=== PATIENT | female | born 1935 | race Caucasian/White ===

== ENCOUNTER 2022-07-25 07:56 | Observation (INO) ==
[2022-07-25] MEDS ORDERED: SODIUM CHLORIDE 0.9% 1000ML 1,000 ML IV ONE (08:06)
--- NOTE | 2022-07-25 08:10 | Emergency Department Note ---
Impression & Plan Syncope, COVID-19 ED Provider Note NAME: ANGELA MILLAN AGE: 87 SEX: F : 1935 ARRIVES VIA: Ambulance INFORMANT: Patient ED PROVIDER(S): Pierce Thorpe DO CHIEF COMPLAINT: syncope HPI: Patient is an 87-year-old female who presents to the ER who woke up this morning and went into the bathroom to get ready for the day. She was not going to use the restroom. She denies any headache or change in vision. She felt a little lightheaded and passed out. She woke up on the floor called EMS. When she tried to get up she almost passed out again. Systolic pressures went down to the 60s and she bradycardia to the 30s per EMS. She denies any chest pain, shortness of breath, nausea, vomiting, or diarrhea. No dysuria, urgency, or frequency. No other exacerbating or remitting factors. PAST MEDICAL HISTORY:See Below PAST SURGICAL HISTORY:See Below FAMILY HISTORY:See Below SOCIAL HISTORY:See Below HOME MEDICATIONS:See Below ALLERGIES:See Below VITALS:See Below PHYSICAL EXAMINATION: GENERAL: Sitting up in bed, alert, well appearing, well nourished, no distress, non-toxic EYE EXAM: normal conjunctiva. PERRL and EOM's intact. OROPHARYNX: no exudate, no erythema, lips, buccal mucosa, and tongue normal and mucous membranes are moist NECK: supple, no nuchal rigidity, no adenopathy, non-tender LUNGS: Clear to auscultation. Normal chest wall mechanics HEART: no murmurs, S1 normal and S2 normal ABDOMEN: abdomen soft, non-tender, normo-active bowel sounds, no masses, no rebound or guarding. BACK: Back is symmetrical on inspection and there is no deformity, no midline tenderness, no CVA tenderness. SKIN: no rashes and no bruising UPPER EXTREMITIES: upper extremities are grossly normal. LOWER EXTREMITIES: No pitting edema. NEURO EXAM: Normal sensorium, cranial nerves II-XII intact, normal speech, no weakness of arms, no weakness of legs. No drift. Finger to nose intact. Gross sensation intact. MEDICAL DECISION MAKING: Patient is an 87-year-old female who presents the ER for syncope. She was brought in by EMS. Report was obtained from EMS by myself at bedside. IV was established blood work was obtained. Labs show no significant leukocytosis or anemia. BMP with LFTs bilirubin and lipase was unremarkable. TSH was normal. COVID was positive. External records were reviewed. CT head was negative. Chest x-ray without any focal infiltrate. Patient was given IV fluids while in the ER. Patient was updated bedside. Discussed with hospitalist for further evaluation management and treatment. Triage Nursing notes reviewed. Limited review of prior medical records performed Vital Signs: reviewed and remarkable for no significant abnormalities Differential diagnosis: Differential diagnosis includes etiologies such as vasovagal event, infection, hypoglycemia, electrolyte abnormalities, cardiac sources, intracerebral event, toxicologic, neurologic, as well as others were entertained. ER treatment provided: See below Diagnostics interpreted by me include EKG and cardiac monitoring as listed below: -Cardiac Monitoring: An order was placed for continuous cardiac monitoring. The monitor shows a rate of 80 with sinus rhythm. -ECG: Sinus rhythm rate 69 Normal axis T wave inversions in V2 through V6 Slightly progressed from previous. -Laboratory studies:Interpreted by me as stated above in MDM and shown below. Imaging studies: Xrays: As interpreted by me: Portable AP upright 1 view of the chest CTs show: none Consultation(s): As described in MDM Procedures:none Critical Care: None Past Med/Surg History Medical History (Updated 07/25/22 @ 13:30 by Pierce Thorpe DO) HLD (hyperlipidemia) Hypothyroid MGUS (monoclonal gammopathy of unknown significance) Osteoarthritis Surgical History History of breast biopsy x2--benign History of colonoscopy History of dilatation and curettage History of tooth extraction Family History (Updated 07/25/22 @ 10:02 by Susana Brambila PA-C) Aunt Breast cancer Mother Hypertension Heart disease Father Heart disease Diabetes Son Diabetes Other No family history of adverse response to anesthesia Social History Smoking Status: Never smoker Second Hand Exposure: No; Hx Alcohol Use: No Hx Substance Use: No Preferred Language: Burmese Communication Ability: Effective 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 Beliefs That Will Affect Care: None Current Living Situation: Alone Current Living Situation Comment: Lives with daughter Feels Safe at Home: Yes Safety Concerns: Feels Safe At This Time Assistive Devices: Glasses Allergies Allergies Allergy/AdvReac Type Severity Reaction Status Date / Time No Known Allergies Allergy Verified 07/25/22 08:40 Home Meds Home Medications Medication Instructions Recorded Confirmed escitalopram oxalate 5 mg tablet 5 mg PO HS 10/01/20 07/25/22 (Lexapro) levothyroxine 75 mcg tablet 75 mcg PO QAM 10/01/20 07/25/22 simvastatin 20 mg tablet 20 mg PO QPM 10/01/20 07/25/22 cholecalciferol (vitamin D3) 10 10 mcg PO QDL 04/30/21 07/25/22 mcg (400 unit) tablet (Vitamin D3) meclizine 25 mg tablet 25 mg PO BID PRN Dizziness 07/25/22 07/25/22 Results & Data (ED) Vital Signs Vital Signs - 24 hr 07/25/22 08:09 07/25/22 08:12 07/25/22 08:12 Temperature 37.1 C Temperature Source Oral Pulse Rate 70 Respiratory Rate 14 Blood Pressure 137/73 Blood Pressure Mean 94 Blood Pressure Position Sitting Pulse Oximetry 96 Oxygen Delivery Method Room Air Room Air Room Air Sepsis Recent Fever Within 48 Hours No Sepsis New/Unexplained Change in Mental Status No Sepsis Action Taken by Nursing No Action Required 07/25/22 08:12 07/25/22 08:11 Temperature Temperature Source Oral Pulse Rate 68 Respiratory Rate Blood Pressure Blood Pressure Mean Blood Pressure Position Pulse Oximetry Oxygen Delivery Method Sepsis Recent Fever Within 48 Hours Sepsis New/Unexplained Change in Mental Status Sepsis Action Taken by Nursing Laboratory Data 07/25/22 08:04 07/25/22 08:04 Lab Results 07/25/22 07/25/22 07/25/22 Range/Units 08:04 08:04 08:04 WBC 5.87 (4.8-10.8) K/ul RBC 4.39 (4.20-5.40) M/uL Hgb 13.0 (12.0-16.0) g/dl Hct 39.6 (37.0-47.0) % MCV 90.2 (80.0-100.0) fL MCH 29.6 (25.0-34.0) pg MCHC 32.8 (32.0-36.0) g/dL RDW Std Deviation 43.2 (36.4-46.3) fL RDW Coeff of Eleni 13.0 (11.5-14.5) % Plt Count 181 (130-400) K/uL MPV 9.3 L (9.4-12.4) fL Immature Gran % (Auto) 0.9 % Neut % (Auto) 74.9 % Lymph % (Auto) 14.1 % [place] % (Auto) 8.7 % Eos % (Auto) 0.9 % Baso % (Auto) 0.5 % Neut # (Auto) 4.40 (1.40-6.50) K/uL Lymph # (Auto) 0.83 L (1.2-3.4) K/uL [place] # (Auto) 0.51 (0.11-0.59) K/uL Eos # (Auto) 0.05 (0-0.50) K/uL Baso # (Auto) 0.03 (0-0.2) K/uL Immature Gran # (Auto) 0.05 (0.01-0.20) K/uL Sodium 137 (136-145) mmol/L Potassium 4.4 (3.5-5.1) mmol/L Chloride 107 (98-107) mmol/L Carbon Dioxide 26 (21-32) mmol/L Anion Gap 4 (3-11) BUN 19 (6-23) mg/dl Creatinine 1.02 (0.6-1.2) mg/dl Est Cr Clr Drug Dosing 38.1 ml/min Est GFR ( Amer) 57.7 ml/min Est GFR (Non-Af Amer) 49.8 ml/min BUN/Creatinine Ratio 18.6 (10-20) Glucose 115 H (70-99(Fasting)) mg/dl Calcium 8.9 (8.5-10.1) mg/dl Total Bilirubin 0.6 (0.2-1.0) mg/dl AST 21 (13-39) U/L ALT 19 (7-52) U/L Alkaline Phosphatase 114 H (34-104) U/L Troponin I High Sens 4.0 (0-14) pg/ml Total Protein 6.6 (6.0-8.3) gm/dl Albumin 4.0 (3.4-5.0) gm/dl Globulin 2.6 (2.5-4.0) gm/dl Albumin/Globulin Ratio 1.5 (0.9-2) Lipase 38 (11-82) U/L TSH 1.034 (0.300-4.500) uIu/ml SARS-CoV-2 (PCR) (Negative) Influenza Type A (PCR) (Neg) Influenza Type B (PCR) (Neg) RSV (RT-PCR) (Neg) 07/25/22 Range/Units 08:37 WBC (4.8-10.8) K/ul RBC (4.20-5.40) M/uL Hgb (12.0-16.0) g/dl Hct (37.0-47.0) % MCV (80.0-100.0) fL MCH (25.0-34.0) pg MCHC (32.0-36.0) g/dL RDW Std Deviation (36.4-46.3) fL RDW Coeff of Eleni (11.5-14.5) % Plt Count (130-400) K/uL MPV (9.4-12.4) fL Immature Gran % (Auto) % Neut % (Auto) % Lymph % (Auto) % [place] % (Auto) % Eos % (Auto) % Baso % (Auto) % Neut # (Auto) (1.40-6.50) K/uL Lymph # (Auto) (1.2-3.4) K/uL [place] # (Auto) (0.11-0.59) K/uL Eos # (Auto) (0-0.50) K/uL Baso # (Auto) (0-0.2) K/uL Immature Gran # (Auto) (0.01-0.20) K/uL Sodium (136-145) mmol/L Potassium (3.5-5.1) mmol/L Chloride (98-107) mmol/L Carbon Dioxide (21-32) mmol/L Anion Gap (3-11) BUN (6-23) mg/dl Creatinine (0.6-1.2) mg/dl Est Cr Clr Drug Dosing ml/min Est GFR ( Amer) ml/min Est GFR (Non-Af Amer) ml/min BUN/Creatinine Ratio (10-20) Glucose (70-99(Fasting)) mg/dl Calcium (8.5-10.1) mg/dl Total Bilirubin (0.2-1.0) mg/dl AST (13-39) U/L ALT (7-52) U/L Alkaline Phosphatase (34-104) U/L Troponin I High Sens (0-14) pg/ml Total Protein (6.0-8.3) gm/dl Albumin (3.4-5.0) gm/dl Globulin (2.5-4.0) gm/dl Albumin/Globulin Ratio (0.9-2) Lipase (11-82) U/L TSH (0.300-4.500) uIu/ml SARS-CoV-2 (PCR) POSITIVE A* (Negative) Influenza Type A (PCR) Negative (Neg) Influenza Type B (PCR) Negative (Neg) RSV (RT-PCR) Negative (Neg) Administered Medications Enoxaparin Sodium (Enoxaparin Inj 40 Mg/0.4 Ml Syr) 40 mg SQ Q12H DEANN Stop: 08/24/22 12:29 Last Admin: 07/25/22 13:07 Dose: 40 mg Documented By: NMS Discontinued Medications Sodium Chloride (Nss 1000ml) 1,000 mls @ 999 mls/hr IV .Q1H1M ONE Stop: 07/25/22 09:06 Last Infusion: 07/25/22 11:02 Dose: 0 mls/hr Documented By: Admin: 07/25/22 08:39 Dose: 999 mls/hr Documented By: JPG Imaging Data Radiologist's Impression: Chest X-Ray 07/25/22 08:06 XR chest 1V portable CLINICAL HISTORY: Chest pain, nonspecific TECHNIQUE: Single frontal radiograph of the chest was obtained. Comparison: None available at the time of this dictation. FINDINGS: No lines and tubes are seen. The cardiomediastinal silhouette is normal. The lungs are clear. No evidence of pleural effusion or pneumothorax. IMPRESSION: No acute chest disease. ACT 112: Negative or not required by law. Electronically signed by: Ashish Brown M.D. 07/25/2022 8:[address] 07/25/22 08:[address] DOSE: 537.48 mGy.cm HISTORY: Syncope. fall TECHNIQUE: Multiaxial CT images of the head were performed without the use of intravenous contrast. Automated exposure control was utilized for this study. A dose lowering technique was utilized adhering to the principles of ALARA. Comparison: None. Findings: Mild mucosal thickening within the ethmoid air cells. The mastoid air cells are clear. Partially calcified sebaceous cyst seen within the scalp. The calvarium and skull base are intact. There is no mass, hematoma, midline shift, acute infarct. White matter hypodensity is nonspecific but suggestive of microvascular ischemic change. The ventricles and sulci demonstrate mild age-related involutional changes. Impression: No acute intracranial abnormality. Atrophy and microvascular ischemic changes. ACT 112: Negative or not required by law. Electronically signed by: Jg Narayan M.D. 07/25/2022 9:21 AM Discharge Plan Visit Data Chief Complaint: Syncope Stated Complaint: SYNCOPE ED Provider: Pierce Thorpe Discharge Problem: Syncope, COVID-19 Patient Disposition: Admitted As Inpatient Discharge Instructions Interventions: ED Discharge Assessment Last Done: 07/25/22 11:32
--- NOTE | 2022-07-25 08:27 | XRay Report ---
XR chest 1V portable CLINICAL HISTORY: Chest pain, nonspecific TECHNIQUE: Single frontal radiograph of the chest was obtained. Comparison: None available at the time of this dictation. FINDINGS: No lines and tubes are seen. The cardiomediastinal silhouette is normal. The lungs are clear. No evid ence of pleural effusion or pneumothorax. IMPRESSION: No acute chest disease. ACT 112: Negative or not required by law. Electronically signed by: Ashish Brown M.D. 07/25/2022 8:26 AM
[2022-07-25 08:37] LABS: Basophils # (auto) 0.03 K/uL (0-0.2); Basophils % (auto) 0.5 %; Eosinophils # (auto) 0.05 K/uL (0-0.50); Eosinophils % (auto) 0.9 %; Hematocrit (blood only) 39.6 % (37.0-47.0); Immature Granulocytes # (auto) 0.05 K/uL (0.01-0.20); Immature Granulocytes % (auto) 0.9 %; Lymphocytes # (auto) 0.83 K/uL (1.2-3.4); Lymphocytes % (auto) 14.1 %; Mean Corpuscular Hemoglobin 29.6 pg (25.0-34.0); Mean Corpuscular Hgb Conc 32.8 g/dL (32.0-36.0); Mean Corpuscular Volume 90.2 fL (80.0-100.0); Mean Platelet Volume 9.3 fL (9.4-12.4); Monocytes # (auto) 0.51 K/uL (0.11-0.59); Monocytes % (auto) 8.7 %; Neutrophils % (auto) 74.9 %; Platelet Count 181 K/uL (130-400); RDW Standard Deviation 43.2 fL (36.4-46.3); Red Blood Count 4.39 M/uL (4.20-5.40); White Blood Count 5.87 K/ul (4.8-10.8)
[2022-07-25 08:52] LABS: Albumin Globulin Ratio 1.5 (0.9-2); BUN Creatinine Ratio 18.6 (10-20); Bilirubin,Total 0.6 mg/dl (0.2-1.0); Calcium 8.9 mg/dl (8.5-10.1); Creatinine Clr Calc Pharmacy 38.1 ml/min; Est GFR (African American) 57.7 ml/min; Est GFR (Non-African American) 49.8 ml/min; Globulin 2.6 gm/dl (2.5-4.0); Potassium 4.4 mmol/L (3.5-5.1); Total Protein 6.6 gm/dl (6.0-8.3)
--- NOTE | 2022-07-25 09:24 | CT Scan Report ---
HEAD CT NONCONTRAST CT DOSE: 537.48 mGy.cm HISTORY: Syncope. fall TECHNIQUE: Multiaxial CT images of the head were performed without the use of intravenous contrast. A utomated exposure control was utilized for this study. A dose lowering technique was utilized adheri ng to the principles of ALARA. Comparison: None. Findings: Mild mucosal thickening within the ethmoid air cells. The mastoid air cells are clear. Part ially calcified sebaceous cyst seen within the scalp. The calvarium and skull base are intact. There is no mass, hematoma, midline shift, acute infarct. White matter hypodensity is nonspecific but sugge stive of microvascular ischemic change. The ventricles and sulci demonstrate mild age-related involut ional changes. Impression: No acute intracranial abnormality. Atrophy and microvascular ischemic changes. ACT 112: Negative or not required by law. Electronically signed by: Jg Narayan M.D. 07/25/2022 9:21 AM
--- NOTE | 2022-07-25 09:59 | History & Physical Report ---
Date of Service July 25, 2022 Assessment & Plan (1) Syncope: Plan: - Admit to tele - Sounds like a vasovagal episode but will rule out other etiology - Trend cardiac biomarkers, first set ordered now, trend x2 sets - Check orthostatics - EKG reviewed as above - showing slight T wave inversions but this appears to be chronic - Check 2 D echo - PT/OT consulted (2) COVID-19: Plan: -Patient complains of a head cold times few days, serology is positive for COVID-19 on admission -Placed on airborne isolation -No hypoxia, on room air at 96% sats -No wbc, no respiratory sx other than dry cough so does not meet needs for dexamethasone currently (3) Osteoarthritis: Plan: - cont vit D supplementation (4) HLD (hyperlipidemia): Plan: - Cont statin therapy (5) Hypothyroid: Plan: - Cont levothyroxine - Will check TSH with reflex T4 (6) MGUS (monoclonal gammopathy of unknown significance): Plan: - Hx of such since 2005, will place on lovenox 40 mg subq Q12H for DVT ppx with covid - CBC with diff appears WNL - Follows with Dr. Rayshawn Choi as outpatient- previously obtained care at [facility] DVT ppx: - teds, scds, lovenox subq 40 mg Q12h Code: Full Dispo: from home, lives independently History of Present Illness Chief Complaint: Syncope and Fall Primary Care Provider: Jordy Sim MD This is an 81-year-old female with PMHx of MGUS, mild leukopenia, hypothyroidism, chronic depression, osteoarthritis, HLD who presents to the hospital after a bout of dizziness and sustaining of a fall which occurred this morning. She was attempting to get up and get ready for the day; she made her bed without difficulty, but felt somewhat warm/hot. Denies fever overnight. She was walking from the bedroom to the bathroom and attempted to walk back but doesn't remember what happened afterwards but was leaning against the wall when she came to. She had been visiting her daughter to plan to go for a routine mammography, and so daughter was at home and heard her, then called EMS. She denies any chest pain or shortness of breath. Pt did not vomit nor was nauseous. She did not loose control of her bowels during the event. Pt admits to having a history of vertigo, but feels the room spinning, but does not think this felt the same. Pt reports having a head cold for the past few days. She had very runny nose recently, sinus congestion, and has a dry cough. Allergies Allergy/AdvReac Type Severity Reaction Status Date / Time No Known Allergies Allergy Verified 07/25/22 08:40 Home Medications Medication Instructions Recorded Confirmed Type escitalopram oxalate 5 mg tablet 5 mg PO HS 10/01/20 07/25/22 History (Lexapro) levothyroxine 75 mcg tablet 75 mcg PO QAM 10/01/20 07/25/22 History simvastatin 20 mg tablet 20 mg PO QPM 10/01/20 07/25/22 History cholecalciferol (vitamin D3) 10 10 mcg PO QDL 04/30/21 07/25/22 History mcg (400 unit) tablet (Vitamin D3) meclizine 25 mg tablet 25 mg PO BID PRN Dizziness 07/25/22 07/25/22 History Past Med/Surg History Medical History (Updated 07/25/22 @ 10:55 by Susana Brambila PA-C) HLD (hyperlipidemia) Hypothyroid MGUS (monoclonal gammopathy of unknown significance) Osteoarthritis Surgical History History of breast biopsy x2--benign History of colonoscopy History of dilatation and curettage History of tooth extraction Family History (Updated 07/25/22 @ 10:02 by Susana Brambila PA-C) Aunt Breast cancer Mother Hypertension Heart disease Father Heart disease Diabetes Son Diabetes Other No family history of adverse response to anesthesia Social History Smoking Status: Never smoker Second Hand Exposure: No; Hx Alcohol Use: No Hx Substance Use: No Preferred Language: Welsh Communication Ability: Effective Russian History Professor Required: No Beliefs That Will Affect Care: None Current Living Situation: Alone Current Living Situation Comment: Lives with daughter Feels Safe at Home: Yes Safety Concerns: Feels Safe At This Time Assistive Devices: Glasses Review of Systems Review of Systems: Constitutional: No fever, sweats or chills + admits to recent head cold as above Eyes: No diplopia, no worsening or blurred vision ENT: normal hearing, no trouble swallowing Respiratory:+ dry cough, no sputum, dyspnea at rest or on exertion Cardiovascular: No chest pain, tightness or palpitations Abdomen: No pain, nausea, vomiting, diarrhea or constipation Musculoskeletal: No joint pain, calf pain, swelling Neurologic:As per HPI, No weakness, numbness/tingling, or balance problems Psychiatric: No anxiety or depression, on antidepressant medication Skin: No rash or itch Physical Exam Physical Exam: Please refer to attending physical exam. Results & Data Results & Data ([facility]) Vital Signs (Past 12 Hours) Vital Signs Temp Pulse Resp BP Pulse Ox O2 Del Method 07/25/22 08:11 68 07/25/22 08:12 Room Air 07/25/22 08:12 Room Air 07/25/22 08:09 37.1 C 70 14 137/73 96 Room Air Laboratory Results 07/25/22 07/25/22 08:04 08:04 WBC 5.87 RBC 4.39 Hgb 13.0 Hct 39.6 MCV 90.2 MCH 29.6 MCHC 32.8 RDW Std Deviation 43.2 RDW Coeff of Eleni 13.0 Plt Count 181 MPV 9.3 L Immature Gran % (Auto) 0.9 Neut % (Auto) 74.9 Lymph % (Auto) 14.1 [place] % (Auto) 8.7 Eos % (Auto) 0.9 Baso % (Auto) 0.5 Neut # (Auto) 4.40 Lymph # (Auto) 0.83 L [place] # (Auto) 0.51 Eos # (Auto) 0.05 Baso # (Auto) 0.03 Immature Gran # (Auto) 0.05 Sodium 137 Potassium 4.4 Chloride 107 Carbon Dioxide 26 Anion Gap 4 BUN 19 Creatinine 1.02 Est Cr Clr Drug Dosing 38.1 Est GFR ( Amer) 57.7 Est GFR (Non-Af Amer) 49.8 BUN/Creatinine Ratio 18.6 Glucose 115 H Calcium 8.9 Total Bilirubin 0.6 AST 21 ALT 19 Alkaline Phosphatase 114 H Troponin I High Sens 4.0 Total Protein 6.6 Albumin 4.0 Globulin 2.6 Albumin/Globulin Ratio 1.5 Lipase 38 Diagnostic Findings Chest X-Ray 07/25/22 08:06 XR chest 1V portable CLINICAL HISTORY: Chest pain, nonspecific TECHNIQUE: Single frontal radiograph of the chest was obtained. Comparison: None available at the time of this dictation. FINDINGS: No lines and tubes are seen. The cardiomediastinal silhouette is normal. The lungs are clear. No evidence of pleural effusion or pneumothorax. IMPRESSION: No acute chest disease. ACT 112: Negative or not required by law. Electronically signed by: Ashish Brown M.D. 07/25/2022 8:[address] 07/25/22 08:[address] DOSE: 537.48 mGy.cm HISTORY: Syncope. fall TECHNIQUE: Multiaxial CT images of the head were performed without the use of intravenous contrast. Automated exposure control was utilized for this study. A dose lowering technique was utilized adhering to the principles of ALARA. Comparison: None. Findings: Mild mucosal thickening within the ethmoid air cells. The mastoid air cells are clear. Partially calcified sebaceous cyst seen within the scalp. The calvarium and skull base are intact. There is no mass, hematoma, midline shift, acute infarct. White matter hypodensity is nonspecific but suggestive of microvascular ischemic change. The ventricles and sulci demonstrate mild age- related involutional changes. Impression: No acute intracranial abnormality. Atrophy and microvascular ischemic changes. ACT 112: Negative or not required by law. Electronically signed by: Jg Narayan M.D. 07/25/2022 9:21 AM Code Status & VTE Plan Code Status Full code - discussed with pt at bedside Supervising Physician Co-Signing Physician Notes History and physical exam performed by me. History notable for 87-year-old woman who presents after a syncopal episode this morning. Patient reported that she noted feeling warmth and swelling on waking up this morning. She was going to the bathroom to have a bowel movement she started feeling faint and tried to return back to bedroom and passed out. Daughter who was in the house came and called EMS. In the ER, patient was reported to be hypotensive and bradycardic at this time. Patient review of system is only notable for sinus congestion, dry cough over the past few days. Denies any shortness of breath, palpitations, chest pain On exam, General: Elderly woman, no acute distress and not ill appearing Eyes: PERRL, conjunctivae normal, not pale, anicteric sclerae, EOM intact bilaterally ENMT: External ear and nose normal, oropharynx normal Respiratory: Normal respiratory effort, no respiratory distress, lungs clear to auscultation, no crackles and no wheezes Cardiovascular: RRR S1 S2 Gastrointestinal (Abdomen): Abdomen is not distended, soft, non-tender to palpation, no guarding, no palpable hepatosplenomegaly, normal bowel sounds Musculoskeletal: No pedal edema Neurologic: Alert and oriented x 3, No focal weakness, sensation grossly intact Psychiatric: Euthymic affect Lab was only notable for positive COVID test. Chest x-ray did not show any acute abnormalities CT head did not show any acute abnormalities. Syncopal episode. COVID-19 infection Syncopal episode and appears vasovagal. Get Troponin. EKG showed T wave inversion in V2-6 which is not new Get 2D echo. Telemetry monitoring Patient is currently on room air. Supportive care. No need for COVID-specific therapies. Airborne isolation. Other plans as detailed by Susana Martínez PA-C
[2022-07-25 10:00] LABS: Influenza A virus by PCR Negative (Neg); Influenza B virus by PCR Negative (Neg); RSV by PCR Negative (Neg)
[2022-07-25 10:32] LABS: SARS CoV2 RNA(COVID-19) Ceph POSITIVE (Negative)
--- NOTE | 2022-07-25 10:38 | Communication Note ---
Date of Service: July 25, 2022 History and physical exam performed by me. History notable for 87-year-old woman who presents after a syncopal episode this morning. Patient reported that she noted feeling warmth and swelling on waking up this morning. She was going to the bathroom to have a bowel movement she started feeling faint and tried to return back to bedroom and passed out. Daughter who was in the house came and called EMS. In the ER, patient was reported to be hypotensive and bradycardic at this time. Patient review of system is only notable for sinus congestion, dry cough over the past few days. Denies any shortness of breath, palpitations, chest pain On exam, General: Elderly woman, no acute distress and not ill appearing Eyes: PERRL, conjunctivae normal, not pale, anicteric sclerae, EOM intact bilaterally ENMT: External ear and nose normal, oropharynx normal Respiratory: Normal respiratory effort, no respiratory distress, lungs clear to auscultation, no crackles and no wheezes Cardiovascular: RRR S1 S2 Gastrointestinal (Abdomen): Abdomen is not distended, soft, non-tender to palpation, no guarding, no palpable hepatosplenomegaly, normal bowel sounds Musculoskeletal: No pedal edema Neurologic: Alert and oriented x 3, No focal weakness, sensation grossly intact Psychiatric: Euthymic affect Lab was only notable for positive COVID test. Chest x-ray did not show any acute abnormalities CT head did not show any acute abnormalities. Syncopal episode. COVID-19 infection Syncopal episode and appears vasovagal. Get Troponin. EKG showed T wave inversion in V2-6 which is not new Get 2D echo. Telemetry monitoring Patient is currently on room air. Supportive care. No need for COVID-specific therapies. Airborne isolation. Other plans as detailed by Susana Martínez PA-C
--- NOTE | 2022-07-25 11:26 | Electrocardiogram Report ---
Test Reason : Blood Pressure : / mmHG Vent. Rate : 069 BPM Atrial Rate : 069 BPM P-R Int : 158 ms QRS Dur : 082 ms QT Int : 400 ms P-R-T Axes : 055 014 168 degrees QTc Int : 428 ms Normal sinus rhythm T wave abnormality, consider anterolateral ischemia Abnormal ECG When compared with ECG of 13-APR-2021 11:57, Inverted T waves have replaced nonspecific T wave abnormality in Anterolateral leads Confirmed by Ronald Mccartney ([id number]) on 07/25/2022 11:25:55 AM Referred By: REFERRED SELF Confirmed By:Brian Mccartney
[2022-07-25] MEDS ORDERED: ACETAMINOPHEN 325 MG TAB PO PRN (12:07)
[2022-07-25] MEDS ORDERED: ONDANSETRON INJ 2 MG/ML 2 ML VIAL IV PRN (12:07)
[2022-07-25] MEDS: ENOXAPARIN INJ 40 MG/0.4 ML SYR SQ SCH (13:07)
[2022-07-25 15:50] LABS: Appearance Urine Clear (Clear); Bilirubin Urine Negative (Negative); Blood Urine Negative (Negative); Color Urine Yellow; Glucose Urine UA Negative (Negative); Ketones Urine Negative (Negative); Leukocyte Esterase Urine Negative (Negative); Nitrite Urine Negative (Negative); Protein Urine Negative (Negative); Urobilinogen Urine Negative (Negative)
[2022-07-25] MEDS ORDERED: SIMVASTATIN 20 MG TAB PO SCH (21:00)
[2022-07-25] MEDS ORDERED: ESCITALOPRAM OXALATE 10 MG TAB PO SCH (21:00)
[2022-07-26] MEDS: ENOXAPARIN INJ 40 MG/0.4 ML SYR SQ SCH ×2 (00:25→11:58)
[2022-07-26] MEDS ORDERED: LEVOTHYROXINE SODIUM 75 MCG TABLET PO SCH (06:30)
[2022-07-26 09:37] LABS: BUN Creatinine Ratio 16.8 (10-20); Calcium 9.3 mg/dl (8.5-10.1); Chol HDL Ratio 2.4 (0-5); Creatinine Clr Calc Pharmacy 41.2 ml/min; Est GFR (African American) 62.9 ml/min; Est GFR (Non-African American) 54.2 ml/min; Potassium 3.8 mmol/L (3.5-5.1)
[2022-07-26 09:46] LABS: Hematocrit (blood only) 38.7 % (37.0-47.0); Hemoglobin 13.1 g/dl (12.0-16.0); Mean Corpuscular Hemoglobin 29.6 pg (25.0-34.0); Mean Corpuscular Hgb Conc 33.9 g/dL (32.0-36.0); Mean Corpuscular Volume 87.6 fL (80.0-100.0); Mean Platelet Volume 9.4 fL (9.4-12.4); Platelet Count 190 K/uL (130-400); RDW Coefficient of Variation 13.2 % (11.5-14.5); RDW Standard Deviation 42.1 fL (36.4-46.3); Red Blood Count 4.42 M/uL (4.20-5.40); White Blood Count 4.86 K/ul (4.8-10.8)
[2022-07-26] MEDS ORDERED: FLUTICASONE PROPIONATE NA SPR 16 GM BTL SCH (10:30)
[2022-07-26 12:08] LABS: Estimated Average Glucose 123 mg/dl; Hemoglobin A1C 5.9 % (4.5-5.6)
--- NOTE | 2022-07-26 14:48 | Discharge Summary ---
Discharge Summary Date of Service July 26, 2022 Notes For Next Care Provider covid+ consider outpatient event monitor, however, no abnormal telemetry events during admission and clinically this sounded more like vasovagal syncope Medication Changes From Visit START Flonase Admission HPI Per Admitting Provider This is an 81-year-old female with PMHx of MGUS, mild leukopenia, hypothyroidism, chronic depression, osteoarthritis, HLD who presents to the hospital after a bout of dizziness and sustaining of a fall which occurred this morning. She was attempting to get up and get ready for the day; she made her bed without difficulty, but felt somewhat warm/hot. Denies fever overnight. She was walking from the bedroom to the bathroom and attempted to walk back but doesn't remember what happened afterwards but was leaning against the wall when she came to. She had been visiting her daughter to plan to go for a routine mammography, and so daughter was at home and heard her, then called EMS. She denies any chest pain or shortness of breath. Pt did not vomit nor was nauseous. She did not loose control of her bowels during the event. Pt admits to having a history of vertigo, but feels the room spinning, but does not think this felt the same. Pt reports having a head cold for the past few days. She had very runny nose recently, sinus congestion, and has a dry cough. Principal Dx & Hospital Course #1 = Principal Diagnosis (1) Vasovagal syncope: (2) COVID-19: (3) MGUS (monoclonal gammopathy of unknown significance): - Hx of such since 2005, will place on lovenox 40 mg subq Q12H for DVT ppx with covid - CBC with diff appears WNL - Follows with Dr. Rayshawn Choi as outpatient- previously obtained care at [facility] The patient is an 87-year-old female who presented to after a vasovagal episode at home. She was admitted to medicine and cardiac biomarkers were trended and were negative x3. EKG was reviewed revealing T wave inversions in the anterolateral leads but this was unchanged from prior EKGs in previous years. She also denied any chest pain or other ACS symptoms. Resting echocardiogram was performed and revealed a preserved EF with no structural changes no valvulopathy that was significant. She was found to be positive for COVID and had been symptomatic for the past 3 to 4 days. Prior to syncope episode she had prodromal symptoms indicative of a possible vasovagal etiology. She woke up and was clear and did not hit her head. She had no loss of bowel or bladder control and did not bite her tongue-i.e. there was little clinical concern for seizure activity. She is feeling better from a clinical standpoint although still ill to some affect because of the COVID-19 infection. There were no changes in rhythm on telemetry overnight. She was found to have no intracranial abnormalities on CT of the head and no concerning findings on chest x-ray for pneumonia or other issues. Orthostatics were negative. Flonase was started for supportive care and physical therapy cleared her as safe for discharge to home. She was discharged in stable condition with close primary care follow-up recommended. By CMS guidelines, a determination that the admission or continued stay is not medically necessary has been made by a member of the Utilization Review committee and a physician for this hospital stay. Therefore, a Code 44 will be completed and the inpatient admission will be changed to outpatient. Discharge Exam CONSTITUTIONAL: WNWD, vitals as above, generally well-appearing, NAD EYES: EOMI bilaterally, PERRL, normal conjunctivae, no scleral icterus ENT: external ear and nose normal, oral mucous membranes are moist. NECK: trachea midline RESPIRATORY: clear to auscultation bilaterally, no crackles, rales or wheezes, normal respiratory effort CARDIOVASCULAR: regular rate and rhythm, S1 and 2 heard without murmurs, gallops or rubs, no JVD, no peripheral edema CHEST: inspection of chest was normal GASTROINTESTINAL: normal bowel sounds, soft, nontender, ND, no guarding MUSCULOSKELETAL: strength 5/5 throughout, head is normocephalic and atraumatic SKIN: warm and dry NEUROLOGIC: CN 2-12 grossly intact, no sensory deficit, normal cognition, normal speech, no tremor PSYCHIATRIC: alert cooperative and oriented to person, place and time. Updated Medication List Medication Instructions Recorded Confirmed Type escitalopram oxalate 5 mg tablet 5 mg PO HS 10/01/20 07/25/22 History (Lexapro) levothyroxine 75 mcg tablet 75 mcg PO QAM 10/01/20 07/25/22 History simvastatin 20 mg tablet 20 mg PO QPM 10/01/20 07/25/22 History cholecalciferol (vitamin D3) 10 10 mcg PO QDL 04/30/21 07/25/22 History mcg (400 unit) tablet (Vitamin D3) meclizine 25 mg tablet 25 mg PO BID PRN Dizziness 07/25/22 07/25/22 History fluticasone propionate 50 2 spray NA Q24H #16 grams 07/26/22 Rx mcg/actuation nasal spray,suspension Hospital Stay Data Consultations 07/25/22 09:52 ED Decision to Admit Stat Diagnostic Imagining Performed 07/25/22 08:06 CT head/brain wo con Stat Pending Results Patient Have Any Pending Studies at Discharge: No Discharge Instructions Given to Patient (Per Discharging Provider) Please take all medications as instructed on discharge list below. Please follow-up with your primary care provider at the date and time listed above. Please try using flonase nasal spray for the next week to help wtih covid-19 symptoms. Please continue to stay on home isolation for at least 10 days since symptom onset. If you are in public please wear a mask. It was a pleasure taking care of you! Please call if you have any questions or problems. You can reach a [facility] hospitalist on duty at [facility] 24 hours a day by calling [phone]. Take care of yourself. Aydee Conley, [facility] Hospitalist Total Time Total Time Spent Total Time Spent (In Minutes): 60
== END 2022-07-26 15:34 | disposition home or self-care (01) ==
LOC: ED 07:56 → SUATTDRO 10:07 → 2S 10:07 → INTOOBSV 10:07 → 2S 11:32